=== PATIENT | female | born 2000 | race Two or more races ===

== ENCOUNTER 2020-08-14 18:40 | Emergency (ER) | payer BC ==
--- NOTE | 2020-08-14 19:28 | EDM.PDOC ---
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 Fontanez is a very pleasant 19-year-old woman, G0, P0, who now presents to [facility] ED for unusual vaginal bleeding. She states that her LMP was 07/23/2020, which was on time, and normal for her. She then developed vaginal bleeding this past 08/12/2020, that she states is lot technician in color and thinner in consistency than usual. She has associated pelvic cramps that are more persistent, although not more severe, than usual. She also reports feeling slightly lightheaded. No prior similar symptoms. The patient states that she is sexually active, but not on any form of control. She states that she is not intentionally trying to get . Here in the ED, the patient's initial BP is found to be slightly elevated at 144/92, otherwise, she is hemodynamically stable, afebrile, saturating 100% on room air. Other than her unusual vaginal bleeding and slight lightheadedness, the patient denies having a recent fever, chills, sore throat, ear pain, nasal or sinus congestion, cough, dyspnea, chest pain, palpitations, nausea, vomiting, constipation, diarrhea, abdominal pain, urinary symptoms, recent weight gain or weight loss, recent bloody bowel movements or black bowel movements, recent joint aches, headaches, or rashes. The patient's PCP is in [place]. She does not have a PCP or Physical Fitness Trainer here. Lower Abdomen Pain Score (Numeric/FACES): 5 - Related Data Allergies Allergy/AdvReac Type Severity Reaction Status Date / Time No Known Allergies Allergy Verified 08/14/20 18:59 Home Meds: Home Meds . [No Known Home Meds] 08/14/20 [History] Past Medical History Respiratory History: Reports: Asthma (suspected, not tested) - Past Surgical History Dermatological Surgical History: Reports: Other (See Below) (Pilonidal cyst excision) Social & Family History - Family History Family Medical History: Noncontributory - Tobacco Use Smoking Status *Q: Never Smoker - Caffeine Use Caffeine Use: Reports: Coffee, Energy Drinks, Soda, Tea - Alcohol Use Alcohol Use History: Yes Alcohol Use Frequency: Socially - Recreational Drug Use Recreational Drug Use: No - Living Situation & Occupation Living situation: Reports: Single, Other (Dorm) Occupation: Student ([employer]) ED ROS GENERAL - Review of Systems Review Of Systems: Comprehensive ROS is negative, except as noted in HPI. ED EXAM, RENAL/ - Physical Exam Exam: See Below Exam Limited By: No Limitations General Appearance: Alert, WD/WN, No Apparent Distress Eye Exam: Bilateral Eye: EOMI, Normal Inspection Ears: Normal External Exam, Hearing Grossly Normal Nose: Normal Inspection Throat/Mouth: Normal Inspection, Normal Lips, Normal Voice, No Airway Compromise Head: Atraumatic, Normocephalic Neck: Normal Inspection, Full Range of Motion Respiratory/Chest: No Respiratory Distress, Lungs Clear, Normal Breath Sounds, No Accessory Muscle Use Cardiovascular: Normal Peripheral Pulses, Regular Rate, Rhythm, No Edema, No Gallop, No JVD, No Murmur, No Rub GI/Abdominal: Normal Bowel Sounds, Soft, Non-Tender (including suprapubically/pelvis), No Organomegaly, No Distention, No Abnormal Bruit, No Mass (Female) Exam: Deferred Rectal (Female) Exam: Deferred Back Exam: Normal Inspection, Full Range of Motion, NT Extremities: Normal Inspection, Normal Range of Motion, No Pedal Edema, Normal Capillary Refill Neurological: Alert, Oriented, Normal Cognition, No Motor/Sensory Deficits Psychiatric: Normal Affect Skin Exam: Warm, Dry, Intact, Normal Color, No Rash Course - Vital Signs Last Recorded V/S: Last Vital Signs Temp 36.6 C 08/14/20 19:01 Pulse 85 08/14/20 20:30 Resp 16 08/14/20 19:01 BP 113/67 08/14/20 20:30 Pulse Ox 100 08/14/20 19:01 Orthostatic Blood Pressure [ 150/90 Standing] Orthostatic Blood Pressure [ 130/78 Supine] Orthostatic Blood Pressure [ 144/92 Sitting] - Orders/Labs/Meds Labs: Laboratory Tests 08/14/20 Range/Units 18:53 Urine HCG, Qual Negative (NEGATIVE) - Re-Assessments/Exams Free Text/Narrative Re-Assessment/Exam: 08/14/20 19:22 As above, the patient developed vaginal bleeding 2 days ago, 08/12/2020, that is lot technician in color and thinner in consistency than her usual menstrual., Which is not due for another 10 days, approximately. She also reports cramps, that she normally has with her menstrual periods, but that are more persistent than usual. Since the patient does not use any form of control, there is the question of whether this could represent an early spontaneous or ectopic . The easiest way to make the distinction is to check a test. I was not certain whether or not a urine test would be sensitive enough to detect a this early, therefore I contacted Dr. Kathleen at 19:18. He feels that the urine test is sensitive enough to be able to detect a this early. In the meantime, Antonieta GUERRIER checked orthostatics, which are negative. 08/14/20 20:03 The patient's urine test has returned negative. 08/14/20 20:15 Test results discussed with the patient. I explained that she appears to be having an unusual menstrual period that is not related. The patient inquired about hormone therapy to control her menstrual periods. I will discharge her home with a referral to the clinic. Departure - Departure Time of Disposition: 20:16 Disposition: Home, Self-Care 01 Condition: Good Clinical Impression: Abnormal menstrual periods - Discharge Information *PRESCRIPTION DRUG MONITORING PROGRAM REVIEWED*: Not Applicable *COPY OF PRESCRIPTION DRUG MONITORING REPORT IN PATIENT DEVAUGHN: Not Applicable Referrals: Nancy Spears NP [Nurse Practitioner] - Forms: ED Department Discharge Additional Instructions: You were seen in the emergency room for vaginal bleeding, lot technician in color and thinner in consistency than usual, along with more persistent menstrual cramps than usual, with lightheadedness. Work-up in the ER included a urine test and positional blood pressure checks. Your urine test was negative. This indicates that what you are experiencing is not a miscarriage or ectopic . It appears to be due to an unusual menstrual period. Your blood pressure and heart rate maintained themselves between lying and standing. You are not intravascularly depleted. Please follow-up with Nancy Spears NP, or 1 of the other providers in the clinic, at the next available appointment, to discuss hormone therapy to control your menstrual periods. If any other problems, please do not hesitate to return to the ER. Sepsis Event Note (ED) - Evaluation Sepsis Screening Result: No Definite Risk - Focused Exam Vital Signs: Vital Signs Temp Pulse Resp BP Pulse Ox 08/14/20 20:30 85 113/67 08/14/20 19:01 36.6 C 109 H 16 144/92 H 100
== END 2020-08-14 20:36 | disposition home or self-care (01) ==
LOC: JD.ED 18:40
DX: N92.6 Irregular menstruation, unspecified (principal)
CPT/HCPCS: 81025; 99284

== ENCOUNTER 2023-03-20 11:01 | Emergency (ER) | payer BC ==
[2023-03-20 12:57] LABS: CORONAVIRUS COVID-19 NAA NEGATIVE (NEGATIVE)
== END 2023-03-20 13:44 | disposition home or self-care (01) ==
LOC: JD.ED 11:01
DX: J45.21 Mild intermittent asthma with (acute) exacerbation (principal); J98.9 Respiratory disorder, unspecified; Z20.822 Contact with and (suspected) exposure to COVID-19
CPT/HCPCS: 0241U; 36415; 71046; 80053; 85025; 86140; 99285; 99284